=== PATIENT | female | born 1940 | race Caucasian/White ===

== ENCOUNTER 2018-02-12 10:43 | Inpatient (IN) | payer MEDICARE, BC ==
[2018-02-05 11:52] LABS: BASOPHILS # (AUTO) 0.1 X10'3 (0-0.2); BASOPHILS % (AUTO) 1.8 % (0-1); EOSINOPHILS # (AUTO) 0.2 X10'3 (0-0.9); EOSINOPHILS % (AUTO) 3.7 % (0-6); LYMPHOCYTES % (AUTO) 23.3 % (21-51); MEAN CORPUSCULAR HEMOGLOBIN 30.2 PG (27.0-31.0); MEAN CORPUSCULAR VOLUME 88.7 FL (78-98); MONOCYTES # (AUTO) 0.2 X10'3 (0-0.9); NEUTROPHILS # (AUTO) 2.8 X10'3 (1.8-7.7); NEUTROPHILS % (AUTO) 66.2 % (42-75); PRE OP HEMATOCRIT 35.2 % (35.0-45.0); PRE OP PLATELET COUNT 230 X10'3 (140-440); RED BLOOD COUNT 3.97 X10'6 (4.20-5.60); RED CELL DISTRIBUTION WIDTH 13.9 % (11.5-14.5)
[2018-02-05 12:15] LABS: ALBUMIN 3.8 G/DL (3.4-5.0); ALBUMIN/GLOBULIN RATIO 1.2 (1.1-1.5); ALKALINE PHOSPHATASE 78 IU/L (46-116); BLOOD UREA NITROGEN 49 MG/DL (7-18); BUN/CREATININE RATIO 25.8 (6.6-38.0); CALCIUM 9.3 MG/DL (8.5-10.1); CHLORIDE 103 MMOL/L (99-107); PRE OP ANION GAP 11 (8-16); PRE OP AST 23 U/L (10-37); PRE OP BILIRUB, TOTAL 0.4 MG/DL (0.0-1.0); PRE OP GLUCOSE 105 MG/DL (70-104); PRE OP POTASSIUM 4.2 MMOL/L (3.4-5.1); PRE OP SODIUM 138 MMOL/L (135-145); TOTAL CARBON DIOXIDE 24.1 MMOL/L (24-32); TOTAL PROTEIN 7.1 G/DL (6.4-8.2); eGFR 26 ML/MIN
[2018-02-05 12:23] LABS: PRE OP ALT < 10 U/L (30-65)
[~2018-02-12] VITALS: Ht 167.6 cm; Wt 83.9 kg
[2018-02-12] VITALS (13 sets, daily range): BP systolic 118–189; BP diastolic 53–76
[~2018-02-12 10:43] MED LIST: FEBU40TA PO; HYDR25TA4 PO; LEVO50TA PO; LOSA50TA3 PO; MULT-1141 PO; ceFAZolin inj. 2,000 MG in dextrose 5%-water 100 ML IV ONE; famotidine 20mg tablet PO ONE; ringers solution, lacted 1,000 ML IV SCH; vancomycin inj 1,500 MG in normal saline 300ml IV soln IV ONE
[2018-02-12] MEDS ORDERED: vancomycin 1,000mg inj ONE (13:58)
[2018-02-12] MEDS ORDERED: ROPIVAcaine 0.5% (5mg/ml) 30ml vial ONE ×2 (13:58→15:11)
[2018-02-12] MEDS ORDERED: ketorolac trometh. 30mg/ml inj. ONE (13:58)
[2018-02-12] MEDS ORDERED: acetaminophen 1,000mg/100ml IV 100 ML IV ONE (15:12)
[2018-02-12] MEDS ORDERED: ringers solution, lacted 1,000 ML IV SCH (15:48)
[2018-02-12] MEDS ORDERED: ondansetron/PF 4mg/2ml inj IV PRN (15:50)
[2018-02-12] MEDS ORDERED: proMETHazine 25mg rectal suppository RC PRN (15:50)
[2018-02-12] MEDS ORDERED: hydrALAZINE 20mg/ml inj. IV PRN (15:50)
[2018-02-12] MEDS ORDERED: proCHLORperazine 10 MG/2 ml inj IV PRN (15:50)
[2018-02-12] MEDS ORDERED: fentaNYL/PF 50MCG/1 ML 2ML syringe IV PRN ×2 (15:50)
[2018-02-12] MEDS ORDERED: morphine 4 MG/ML inj SYRINge IV PRN ×2 (15:50)
[2018-02-12] MEDS ORDERED: enalaprilat dihydrate 2.5mg/2ml vial IV PRN (15:50)
[2018-02-12] MEDS ORDERED: sevoflurane 250ml liquid IH ONE (16:50)
[2018-02-12] MEDS ORDERED: ondansetron/PF 4mg/2ml inj ONE (16:55)
[2018-02-12] MEDS ORDERED: propofol inj 20 ML IV ONE (16:55)
[2018-02-12] MEDS ORDERED: LIDOcaine 2% (20mg/ml) 5ml vial ONE (16:55)
[2018-02-12] MEDS ORDERED: dexamethasone sod phosphate 4mg/ml inj. ONE (16:56)
[2018-02-12] MEDS ORDERED: tranexamic acid inj. 1,000 MG in normal saline 100ml IV soln 90 ML IV ONE ×4 (17:00)
[2018-02-12] MEDS ORDERED: ePHEDrine 50MG/ML INJ. ONE (17:34)
[2018-02-12] MEDS ORDERED: midazolam 2 mg/2 ml injection ONE (17:43)
[2018-02-12] MEDS: potassium cl 20mEq in 1/2 NS 1,000 ML IV SCH (18:46)
[2018-02-12] MEDS ORDERED: oxyCODONE IR 5mg (immed. release) tablet PO PRN ×2 (18:50)
[2018-02-12] MEDS ORDERED: bisacodyl 10mg suppository rectal RC PRN (18:50)
[2018-02-12] MEDS ORDERED: diphenhydrAMINE 25mg capsule PO PRN ×2 (18:50)
[2018-02-12] MEDS ORDERED: magnesium hydroxide 30ml (MOM) UD suspension PO PRN (18:50)
[2018-02-12] MEDS ORDERED: acetaminophen 325mg tablet PO PRN (18:50)
[2018-02-12] MEDS ORDERED: HYDROmorphone inj. 0.5 MG/0.5 ML DISP.SYRIN IV PRN ×2 (18:50)
[2018-02-12] MEDS: ondansetron/PF 4mg/2ml inj IV PRN (19:47)
[2018-02-12] MEDS: ketorolac tromethamine 15mg/ml inj. IV SCH (21:25)
[2018-02-12] MEDS: acetaminophen 325mg tablet PO SCH (21:28)
[2018-02-12] MEDS: sennosides 8.6mg tablet PO SCH (21:29)
[2018-02-12] MEDS: gabapentin 300mg capsule PO SCH (21:29)
[2018-02-12] MEDS ORDERED: NORMAL SALINE IV ONE (22:50)
[2018-02-12] MEDS ORDERED: TRANEXAMIC ACID IV ONE (22:50)
[2018-02-13] MEDS: ceFAZolin 1GM/D5W- ADD-VANTAGE 50 ML IV SCH ×2 (00:27→08:48)
[2018-02-13] MEDS: ketorolac tromethamine 15mg/ml inj. IV SCH ×3 (02:13→13:39)
[2018-02-13] MEDS: acetaminophen 325mg tablet PO SCH ×4 (02:15→20:31)
[2018-02-13] MEDS: potassium cl 20mEq in 1/2 NS 1,000 ML IV SCH ×3 (02:15→18:46)
[2018-02-13 03:00] VITALS: BP 107/65
[2018-02-13] MEDS ORDERED: vancomycin/NS 1 GM ADD-VANTAGE 250 ML IV SCH (03:00)
[2018-02-13] MEDS: ondansetron/PF 4mg/2ml inj IV PRN (05:16)
[2018-02-13 06:00] VITALS: BP 131/58
[2018-02-13 06:29] LABS: ANION GAP 11 (8-16); CHLORIDE 103 MMOL/L (99-107); SODIUM 134 MMOL/L (135-145); TOTAL CARBON DIOXIDE 19.7 MMOL/L (24-32)
[2018-02-13] MEDS ORDERED: ASPI-1 PO (06:46)
[2018-02-13 06:53] LABS: BASOPHILS % (AUTO) 0.4 % (0-1); EOSINOPHILS # (AUTO) 0.1 X10'3 (0-0.9); EOSINOPHILS % (AUTO) 1.4 % (0-6); HEMATOCRIT 31.7 % (35.0-45.0); HEMOGLOBIN 10.6 g/dl (12.0-16.0); LYMPHOCYTES # (AUTO) 0.5 X10'3 (1.1-4.8); LYMPHOCYTES % (AUTO) 6.5 % (21-51); MEAN CORPUSCULAR HEMOGLOBIN 29.8 PG (27.0-31.0); MEAN CORPUSCULAR HGB CONC 33.5 % (33.0-36.5); MEAN PLATELET VOLUME 8.4 FL (7.4-10.4); MONOCYTES # (AUTO) 0.1 X10'3 (0-0.9); MONOCYTES % (AUTO) 1.4 % (2-12); NEUTROPHILS # (AUTO) 6.6 X10'3 (1.8-7.7); NEUTROPHILS % (AUTO) 90.3 % (42-75); PLATELET COUNT 192 X10'3 (140-440); RED BLOOD COUNT 3.56 X10'6 (4.20-5.60); RED CELL DISTRIBUTION WIDTH 14.6 % (11.5-14.5); WHITE BLOOD COUNT 7.3 X10'3 (4.5-11.0)
[2018-02-13] MEDS: multivitamins, therapeutics tablet PO SCH (08:00)
[2018-02-13] MEDS: febuxostat 40mg tablet PO SCH (08:00)
[2018-02-13] MEDS: gabapentin 300mg capsule PO SCH ×3 (08:00→20:31)
[2018-02-13 08:36] LABS: ALANINE AMINOTRANSFERASE 19 U/L (12-78); ALBUMIN 3.2 G/DL (3.4-5.0); ALKALINE PHOSPHATASE 60 IU/L (46-116); ASPARTATE AMINO TRANSFERASE 25 U/L (10-37); BILIRUBIN,TOTAL 0.3 MG/DL (0.1-1.0); BLOOD UREA NITROGEN 58 MG/DL (7-18); BUN/CREATININE RATIO 25.7 (6.6-38.0); CALCIUM 8.5 MG/DL (8.5-10.1); CREATININE 2.26 MG/DL (0.40-0.90); GLUCOSE 176 MG/DL (70-104); TOTAL PROTEIN 6.3 G/DL (6.4-8.2); eGFR 21 ML/MIN
[2018-02-13] MEDS ORDERED: scopolamine 1.5mg patch.TD72 TD ONE (09:35)
[2018-02-13 10:33] VITALS: BP 154/56
[2018-02-13] MEDS: HYDROchlorothiazide 25mg tablet PO SCH (10:36)
[2018-02-13] MEDS: levoTHYROXINE 25mcg tablet PO SCH (10:36)
[2018-02-13] MEDS: aspirin 325mg tablet PO SCH (10:36)
[2018-02-13] MEDS: losartan 50mg tablet PO SCH (10:37)
[2018-02-13] MEDS ORDERED: LACTOSE-FREE FOOD 237ML (BOOST) PO SCH (13:00)
[2018-02-13 14:00] VITALS: BP 146/55
[2018-02-13] MEDS ORDERED: HYDROcodone/acetaminophen 10/325mg tab PO PRN (15:05)
[2018-02-13] MEDS ORDERED: HYDROcodone/acetaminophen 5mg/325mg tablet PO PRN (15:05)
[2018-02-13 18:00] VITALS: BP 146/47
[2018-02-13] MEDS: sennosides 8.6mg tablet PO SCH (20:32)
[2018-02-13 22:00] VITALS: BP 146/45
[2018-02-13] MEDS: celeCOXIB 100mg capsule PO SCH (22:41)
[2018-02-14] MEDS: acetaminophen 325mg tablet PO SCH ×2 (02:15→08:28)
[2018-02-14 05:00] VITALS: BP 147/45
[2018-02-14 06:29] LABS: BASOPHILS # (AUTO) 0.1 X10'3 (0-0.2); BASOPHILS % (AUTO) 1.4 % (0-1); EOSINOPHILS # (AUTO) 0.2 X10'3 (0-0.9); EOSINOPHILS % (AUTO) 4.3 % (0-6); HEMATOCRIT 27.3 % (35.0-45.0); HEMOGLOBIN 9.3 g/dl (12.0-16.0); LYMPHOCYTES # (AUTO) 1.1 X10'3 (1.1-4.8); LYMPHOCYTES % (AUTO) 26.2 % (21-51); MEAN CORPUSCULAR HEMOGLOBIN 29.9 PG (27.0-31.0); MEAN CORPUSCULAR VOLUME 87.9 FL (78-98); MEAN PLATELET VOLUME 8.2 FL (7.4-10.4); MONOCYTES # (AUTO) 0.2 X10'3 (0-0.9); MONOCYTES % (AUTO) 4.5 % (2-12); NEUTROPHILS # (AUTO) 2.7 X10'3 (1.8-7.7); NEUTROPHILS % (AUTO) 63.6 % (42-75); PLATELET COUNT 183 X10'3 (140-440); RED CELL DISTRIBUTION WIDTH 14.6 % (11.5-14.5); WHITE BLOOD COUNT 4.3 X10'3 (4.5-11.0)
[2018-02-14] MEDS: celeCOXIB 100mg capsule PO SCH (08:19)
[2018-02-14] MEDS: losartan 50mg tablet PO SCH (08:25)
[2018-02-14] MEDS: gabapentin 300mg capsule PO SCH (08:26)
[2018-02-14] MEDS: HYDROchlorothiazide 25mg tablet PO SCH (08:26)
[2018-02-14] MEDS: febuxostat 40mg tablet PO SCH (08:26)
[2018-02-14] MEDS: levoTHYROXINE 25mcg tablet PO SCH (08:27)
[2018-02-14] MEDS: multivitamins, therapeutics tablet PO SCH (08:27)
[2018-02-14] MEDS: aspirin 325mg tablet PO SCH (08:28)
[2018-02-14] MEDS ORDERED: acetaminophen 325mg tablet PO PRN (18:50)
== END 2018-02-14 10:38 | disposition home or self-care (01) | DRG 483 ==
LOC: PAS IN 11:10 → EDSTATUS 13:30 → ORTHO 4S 19:51
PROVIDERS: ADMIT Orthopaedic Surgery; ATTEND Orthopaedic Surgery
PROC: 0LS30ZZ Reposition Right Upper Arm Tendon, Open Approach (ICD-10-PCS; 2018-02-12)
PROC: 3E0T3BZ Introduction of Anesthetic Agent into Peripheral Nerves and Plexi, Percutaneous Approach (ICD-10-PCS; 2018-02-12)
PROC: 0RRJ00Z Replacement of Right Shoulder Joint with Reverse Ball and Socket Synthetic Substitute, Open Approach (ICD-10-PCS; principal; 2018-02-12 16:50)
DX: M19.011 Primary osteoarthritis, right shoulder (principal); D62 Acute posthemorrhagic anemia; M75.121 Complete rotator cuff tear or rupture of right shoulder, not specified as traumatic; E03.9 Hypothyroidism, unspecified; I12.9 Hypertensive chronic kidney disease with stage 1 through stage 4 chronic kidney disease, or unspecified chronic kidney disease; N18.9 Chronic kidney disease, unspecified; M65.811 Other synovitis and tenosynovitis, right shoulder; R11.2 Nausea with vomiting, unspecified; Z96.652 Presence of left artificial knee joint; Z96.651 Presence of right artificial knee joint; Z98.1 Arthrodesis status; Z88.0 Allergy status to penicillin; Z79.899 Other long term (current) drug therapy; Z79.82 Long term (current) use of aspirin
CPT/HCPCS: 36415; 71046; 80053; 84443; 85025; 87070; 97110; 97116; 97161; 97535; A4565; A7000; J0131; J0690; J1100; J1885; J2001; J2250; J2405; J2704; J2795; J3370; J7030; J7040; J7060; J7120; Q0163

== ENCOUNTER 2020-12-19 12:32 | Inpatient (IN) | payer MEDICARE, BC ==
[2020-12-19] VITALS (7 sets, daily range): BP systolic 122–183; BP diastolic 79–134
[~2020-12-19] VITALS: Ht 167.6 cm; Wt 86.4 kg
[~2020-12-19 12:32] MED LIST changes: +ASPI-1 PO; -ceFAZolin inj. 2,000 MG in dextrose 5%-water 100 ML IV ONE; -famotidine 20mg tablet PO ONE; -ringers solution, lacted 1,000 ML IV SCH; -vancomycin inj 1,500 MG in normal saline 300ml IV soln IV ONE
[2020-12-19 13:17] LABS: ALANINE AMINOTRANSFERASE 21 U/L (12-78); ALBUMIN 3.7 G/DL (3.4-5.0); ALBUMIN/GLOBULIN RATIO 1.2 (1.1-1.5); ALKALINE PHOSPHATASE 47 IU/L (46-116); ANION GAP 9 (8-16); ASPARTATE AMINO TRANSFERASE 50 U/L (10-37); BILIRUBIN,TOTAL 0.3 MG/DL (0.1-1.0); BLOOD UREA NITROGEN 46 MG/DL (7-18); BUN/CREATININE RATIO 27.4 (6.6-38.0); CALCIUM 8.7 MG/DL (8.5-10.1); CHLORIDE 107 MMOL/L (99-107); CREATININE 1.68 MG/DL (0.40-0.90); GLUCOSE 101 MG/DL (70-104); POTASSIUM 5.2 MMOL/L (3.5-5.1); SODIUM 141 MMOL/L (135-145); TOTAL CARBON DIOXIDE 24.9 MMOL/L (24-32); TOTAL PROTEIN 6.8 G/DL (6.4-8.2); eGFR 29 ML/MIN
[2020-12-19 13:21] LABS: BASOPHILS # (AUTO) 0.1 X10'3 (0-0.2); EOSINOPHILS # (AUTO) 0.4 X10'3 (0-0.9); EOSINOPHILS % (AUTO) 5.5 % (0-6); HEMOGLOBIN 11.2 g/dl (12.0-16.0); LYMPHOCYTES # (AUTO) 1.2 X10'3 (1.1-4.8); LYMPHOCYTES % (AUTO) 16.5 % (21-51); MEAN CORPUSCULAR HEMOGLOBIN 31.3 PG (27.0-31.0); MEAN CORPUSCULAR VOLUME 94.7 FL (78-98); MEAN PLATELET VOLUME 8.6 FL (7.4-10.4); MONOCYTES # (AUTO) 0.5 X10'3 (0-0.9); MONOCYTES % (AUTO) 6.4 % (2-12); NEUTROPHILS % (AUTO) 69.6 % (42-75); PLATELET COUNT 260 X10'3 (140-440); RED BLOOD COUNT 3.59 X10'6 (4.20-5.60); WHITE BLOOD COUNT 7.1 X10'3 (4.5-11.0)
[2020-12-19] MEDS ORDERED: aspirin 81mg tab.chew PO ONE (13:25)
[2020-12-19] MEDS ORDERED: heparin 10,000 units/1 ML INJ IV ONE ×2 (13:30)
[2020-12-19] MEDS ORDERED: heparin 10,000 units/1 ML INJ IV PRN (13:30)
[2020-12-19] MEDS ORDERED: nitroGLYCERIN 0.4mg SUBLingual tab SL PRN (13:35)
[2020-12-19 13:42] LABS: PARTIAL THROMBOPLASTIN TIME 30 SECONDS (22-32)
[2020-12-19] MEDS: heparin 25,000 UNIT/250ml bag 250 ML IV SCH ×2 (14:22→22:45)
[2020-12-19] MEDS: nitroGLYCERIN-Tridil 50MG/D5W 250 ML IV PRN ×2 (14:39→14:57)
[2020-12-19] MEDS ORDERED: acetaminophen 325mg tablet PO ONE (15:45)
[2020-12-19] MEDS ORDERED: acetaminophen 325mg tablet PO PRN (16:35)
[2020-12-19] MEDS ORDERED: magnesium hydroxide 30ml (MOM) UD suspension PO PRN (16:35)
[2020-12-19] MEDS ORDERED: mag hydrox/Alum hydrox/simeth 30ml oral suspension PO PRN (16:35)
[2020-12-19] MEDS ORDERED: morphine 2 MG/ML inj. syringe IV PRN ×2 (16:35)
[2020-12-19] MEDS ORDERED: ondansetron/PF 4mg/2ml inj IV PRN (16:35)
[2020-12-19] MEDS: normal saline 1000ml 1,000 ML IV SCH (18:54)
[2020-12-19] MEDS ORDERED: GABA-530 PO ×2 (20:27)
--- NOTE | 2020-12-19 21:46 | NUR ---
hep ptt 86, drip on hold for 60 minutes per protocol
[2020-12-20] VITALS (9 sets, daily range): BP systolic 164–214; BP diastolic 47–147
[2020-12-20 01:38] LABS: EOSINOPHILS # (AUTO) 0.5 X10'3 (0-0.9); HEMOGLOBIN 11.3 g/dl (12.0-16.0); LYMPHOCYTES # (AUTO) 1.8 X10'3 (1.1-4.8); MEAN CORPUSCULAR VOLUME 94.2 FL (78-98); MEAN PLATELET VOLUME 9.4 FL (7.4-10.4); MONOCYTES # (AUTO) 0.5 X10'3 (0-0.9)
[2020-12-20 01:39] LABS: BASOPHILS % (AUTO) 0.7 % (0-1); EOSINOPHILS % (AUTO) 7.5 % (0-6); HEMATOCRIT 34.4 % (35.0-45.0); LYMPHOCYTES % (AUTO) 27.5 % (21-51); MEAN CORPUSCULAR HEMOGLOBIN 31.1 PG (27.0-31.0); MONOCYTES % (AUTO) 7.6 % (2-12); NEUTROPHILS # (AUTO) 3.8 X10'3 (1.8-7.7); NEUTROPHILS % (AUTO) 56.7 % (42-75); PLATELET COUNT 250 X10'3 (140-440); RED BLOOD COUNT 3.65 X10'6 (4.20-5.60); RED CELL DISTRIBUTION WIDTH 14.4 % (11.5-14.5); WHITE BLOOD COUNT 6.7 X10'3 (4.5-11.0)
[2020-12-20 01:44] LABS: ALBUMIN 3.6 G/DL (3.4-5.0); ANION GAP 12 (8-16); BLOOD UREA NITROGEN 39 MG/DL (7-18); BUN/CREATININE RATIO 22.3 (6.6-38.0); CALCIUM 8.8 MG/DL (8.5-10.1); CHLORIDE 108 MMOL/L (99-107); CREATININE 1.75 MG/DL (0.40-0.90); GLUCOSE 102 MG/DL (70-104); POTASSIUM 4.5 MMOL/L (3.5-5.1); SODIUM 143 MMOL/L (135-145); TOTAL CARBON DIOXIDE 22.8 MMOL/L (24-32); eGFR 28 ML/MIN
--- NOTE | 2020-12-20 01:57 | NUR ---
12 hour troponin 10.68, Notified Dr. 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 call into Dr. Nguyen, awaiting return call.
[2020-12-20] MEDS: normal saline 1000ml 1,000 ML IV SCH ×2 (05:00→12:40)
[2020-12-20] MEDS: hydrALAZINE 20mg/ml inj. IV PRN ×2 (05:34→23:19)
--- NOTE | 2020-12-20 06:15 | NUR ---
heparin gtt running at 800, documentation appears to say it it is at 1000, but it is running at 800 from last adjustment.
--- NOTE | 2020-12-20 06:30 | NUR ---
Problems reprioritized. Patient report given, questions answered & plan of care reviewed with Meliza HACKETT.
--- NOTE | 2020-12-20 06:40 | NUR ---
Patient in room PCU 3027. I have received report from Yajaira HACKETT and had the opportunity to ask questions and assume patient care.
[2020-12-20] MEDS: heparin 25,000 UNIT/250ml bag 250 ML IV SCH (07:32)
--- NOTE | 2020-12-20 09:12 | NUR ---
PAGER ID: [phone] MESSAGE: When you have a chance can you resume home meds for patient Halie La room 8898E? Thanks Meliza HACKETT ext [phone]
[2020-12-20] MEDS ORDERED: GABA300C PO (09:34)
[2020-12-20] MEDS ORDERED: OXYB-58 PO (09:34)
[2020-12-20] MEDS ORDERED: APIX2.5T PO (09:34)
--- NOTE | 2020-12-20 10:50 | NUR ---
PAGER ID: [phone] MESSAGE: CAN I HAVE AN ORDER FOR TYLENOL FOR HEADACHE FOR PATIENT KARLY MARIE ROOM 3025C. THANKS ALCIDES EXT [phone]
[2020-12-20 13:58] LABS: CHOL/HDL RATIO 3.3 (0.00-4.99); CHOLESTEROL 200 MG/DL (0-200); HDL CHOLESTEROL 61 MG/DL (35-60); LDL CHOLESTEROL 115 MG/DL (50-100); TRIGLYCERIDES 110 MG/DL (20-135)
--- NOTE | 2020-12-20 14:14 | NUR ---
PAGER ID: [phone] MESSAGE: may I have an order for tylenol for pain for Halie La Room 327B? Thanks Meliza ext [phone]
--- NOTE | 2020-12-20 14:18 | NUR ---
CRITICAL LAB VALUE TAKEN FROM LAB, REPORTED TO PRIMARY RN.
--- NOTE | 2020-12-20 14:20 | NUR ---
cardiac ptt 91, drip on hold for 120 minutes per protocol
--- NOTE | 2020-12-20 14:20 | NUR ---
PAGER ID: [phone] MESSAGE: Patient Halie La Room 3027A cardiac PTT is 91, stopped heparin drip per protocol. Meliza HACKETT ext [phone]
[2020-12-20] MEDS ORDERED: verapamil 2.5 mg/ml inj IV ONE (15:53)
[2020-12-20] MEDS ORDERED: nitroGLYCERIN-Tridil 50MG/D5W 250 ML IV ONE (15:53)
[2020-12-20] MEDS ORDERED: midazolam 1 mg/ML 2ml injection ONE ×2 (15:53→16:46)
[2020-12-20] MEDS ORDERED: fentaNYL/PF 50MCG/1 ML 2ML syringe ONE (15:54)
[2020-12-20] MEDS ORDERED: LIDOcaine 1% (10mg/ml)w/preservative injection 20ml MDV ONE (15:54)
[2020-12-20] MEDS ORDERED: iohexol 350MG/ML 100ml bottle IV ONE ×2 (15:54→17:02)
[2020-12-20] MEDS ORDERED: heparin 1,000unit/ml 10ml vial 10 ML ONE (15:54)
[2020-12-20] MEDS ORDERED: ondansetron/PF 4mg/2ml inj ONE (16:36)
[2020-12-20] MEDS ORDERED: metoprolol tartrate 1mg/ml inj IV ONE (16:59)
[2020-12-20] MEDS ORDERED: atropine 0.1mg/ml 10ml syringe ONE (17:08)
[2020-12-20] MEDS ORDERED: phenylephrine 10mg/ml inj. ONE (17:09)
[2020-12-20] MEDS ORDERED: proCHLORperazine 10 MG/2 ml inj ONE (17:24)
[2020-12-20] MEDS ORDERED: ticagrelor 90mg tablet ONE ×2 (17:30→17:36)
[2020-12-20] MEDS ORDERED: proCHLORperazine 10 MG/2 ml inj IV PRN (18:05)
[2020-12-20] MEDS ORDERED: ondansetron/PF 4mg/2ml inj IV PRN (18:05)
[2020-12-20] MEDS ORDERED: OXAZEpam 15mg capsule PO PRN (18:05)
--- NOTE | 2020-12-20 18:20 | NUR ---
Patient in room PCU 3027. I have received report from Meliza HACKETT and had the opportunity to ask questions and assume patient care.
--- NOTE | 2020-12-20 18:22 | NUR ---
Problems reprioritized. Patient report given, questions answered & plan of care reviewed with Kika HACKETT.
--- NOTE | 2020-12-20 19:33 | NUR ---
Called pharmacy to ask about aspirin 81 mg po that is not on EMAR but was ordered post cath.
[2020-12-20] MEDS: aspirin 81mg tablet.DR PO SCH (19:34)
[2020-12-20] MEDS: ticagrelor 90mg tablet PO SCH (20:21)
[2020-12-20] MEDS: gabapentin 300mg capsule PO SCH (20:23)
[2020-12-21] VITALS: BP 167/55
[2020-12-21 02:00] VITALS: BP 149/49
[2020-12-21] MEDS: normal saline 1000ml 1,000 ML IV SCH ×2 (02:21→08:35)
--- NOTE | 2020-12-21 04:00 | NUR ---
Removed radistop from right wrist, covered with gauze and tegaderm. No bleeding noted. Mild bruising surrounding site.
--- NOTE | 2020-12-21 06:02 | NUR ---
Patient slept for about 3 hours, up to restroom 3 times. Nausea resolved.
[2020-12-21 06:20] LABS: BASOPHILS # (AUTO) 0.1 X10'3 (0-0.2); EOSINOPHILS # (AUTO) 0.2 X10'3 (0-0.9); EOSINOPHILS % (AUTO) 2.9 % (0-6); HEMATOCRIT 33.1 % (35.0-45.0); LYMPHOCYTES # (AUTO) 1.2 X10'3 (1.1-4.8); LYMPHOCYTES % (AUTO) 18.1 % (21-51); MEAN CORPUSCULAR HEMOGLOBIN 31.6 PG (27.0-31.0); MEAN CORPUSCULAR HGB CONC 33.3 g/dL (33.0-36.5); MEAN CORPUSCULAR VOLUME 94.9 FL (78-98); MEAN PLATELET VOLUME 8.6 FL (7.4-10.4); MONOCYTES # (AUTO) 0.6 X10'3 (0-0.9); MONOCYTES % (AUTO) 8.8 % (2-12); NEUTROPHILS # (AUTO) 4.6 X10'3 (1.8-7.7); NEUTROPHILS % (AUTO) 68.2 % (42-75); PLATELET COUNT 252 X10'3 (140-440); RED BLOOD COUNT 3.49 X10'6 (4.20-5.60); RED CELL DISTRIBUTION WIDTH 14.4 % (11.5-14.5); WHITE BLOOD COUNT 6.7 X10'3 (4.5-11.0)
[2020-12-21 06:33] LABS: ALBUMIN 3.4 G/DL (3.4-5.0); ANION GAP 10 (8-16); BLOOD UREA NITROGEN 28 MG/DL (7-18); BUN/CREATININE RATIO 19.2 (6.6-38.0); CALCIUM 8.5 MG/DL (8.5-10.1); CHLORIDE 110 MMOL/L (99-107); CREATININE 1.46 MG/DL (0.40-0.90); GLUCOSE 96 MG/DL (70-104); POTASSIUM 4.4 MMOL/L (3.5-5.1); SODIUM 141 MMOL/L (135-145); TOTAL CARBON DIOXIDE 21.1 MMOL/L (24-32); eGFR 34 ML/MIN
--- NOTE | 2020-12-21 06:35 | NUR ---
Problems reprioritized. Patient report given, questions answered & plan of care reviewed with Bev HACKETT.
[2020-12-21 07:00] VITALS: BP 163/58
[2020-12-21] MEDS ORDERED: levoTHYROXINE 25mcg tablet PO SCH (07:30)
[2020-12-21 07:32] VITALS: BP_SYST 163
[2020-12-21] MEDS: ticagrelor 90mg tablet PO SCH (07:32)
[2020-12-21] MEDS: gabapentin 300mg capsule PO SCH (07:33)
[2020-12-21] MEDS: aspirin 81mg tablet.DR PO SCH (07:33)
[2020-12-21] MEDS ORDERED: multivitamins, therapeutics tablet PO SCH (08:00)
[2020-12-21] MEDS ORDERED: losartan 50mg tablet PO SCH (08:00)
[2020-12-21] MEDS ORDERED: oxybutynin 5mg tablet PO SCH (08:00)
[2020-12-21] MEDS ORDERED: febuxostat 40mg tablet PO SCH (08:00)
[2020-12-21] MEDS ORDERED: atorvastatin 20mg tablet PO SCH (08:45)
[2020-12-21] MEDS ORDERED: amLODIPine 5mg tablet PO ONE (09:40)
[2020-12-21] MEDS ORDERED: carVEDilol 3.125mg tablet PO SCH (09:55)
[2020-12-21] MEDS ORDERED: ASPI-1071 PO (10:05)
[2020-12-21] MEDS ORDERED: TICA90TA PO (10:05)
[2020-12-21] MEDS ORDERED: COR3.125T PO (10:05)
--- NOTE | 2020-12-21 11:19 | NUR ---
Pt is requesting that she make her own follow up appt. with Dr. Nguyen.
--- NOTE | 2020-12-21 11:54 | NUR ---
Patient was discharged home with daughters. Packet was reviewed and signed, all belongings were sent with patient including stent card, PIV removed with cannula intact, tele monitoring d/c'd, patient will call for her own f/u with Dr. Nguyen, medications faxed to [facility], Patient was wheeled down by staff and left via private vehicle with daughters.
[2020-12-22] MEDS ORDERED: amLODIPine 5mg tablet PO SCH (08:00)
--- NOTE | 2020-12-22 14:54 | NUR ---
CASE MANAGEMENT DISCHARGE FOLLOW UP: Spoke with pt via telephone. Reports that she is "alive and well," reports extensive bruising at radial cath site from palm to forearm, about 6 or 7 inches, states no change from when she was discharged; denies swelling, bleeding, CP, SOB, pain, fever/chills, s/sx infection. Verbalizes understanding of s/sx requiring further evaluation/emergent assistance. Verbalizes understanding of new and current medications. Pt states that after taking one of her medications she has a short period of time in which she can't take a deep breath, states that this happened while she was in the hospital, states it goes away quickly. Advised to let her PMD know and to return to ED if becomes a problem or gets worse/doesn't go away, she verbalizes understanding. Verbalizes compliance with MD discharge instructions. Verbalizes understanding of the importance in making/keeping follow-up appointments, waiting for callback from Dr. Nguyen's office, will call PMD. States that she received card with stent information at time of discharge. States no further questions/concerns at this time.
== END 2020-12-21 11:46 | disposition home or self-care (01) | DRG 246 ==
LOC: ER 12:32 → ED HOLD 16:35 → EDBEDREQ 18:21 → PCU 3S 19:10
PROVIDERS: ADMIT Family Medicine; ATTEND Family Medicine
PROC: 4A023N7 Measurement of Cardiac Sampling and Pressure, Left Heart, Percutaneous Approach (ICD-10-PCS; principal; 2020-12-20)
PROC: 027034Z Dilation of Coronary Artery, One Artery with Drug-eluting Intraluminal Device, Percutaneous Approach (ICD-10-PCS; 2020-12-20)
PROC: B2111ZZ Fluoroscopy of Multiple Coronary Arteries using Low Osmolar Contrast (ICD-10-PCS; 2020-12-20)
PROC: B2151ZZ Fluoroscopy of Left Heart using Low Osmolar Contrast (ICD-10-PCS; 2020-12-20)
DX: I21.4 Non-ST elevation (NSTEMI) myocardial infarction (principal); N17.0 Acute kidney failure with tubular necrosis; I50.31 Acute diastolic (congestive) heart failure; I13.0 Hypertensive heart and chronic kidney disease with heart failure and stage 1 through stage 4 chronic kidney disease, or unspecified chronic kidney disease; Z66 Do not resuscitate; E11.22 Type 2 diabetes mellitus with diabetic chronic kidney disease; E03.9 Hypothyroidism, unspecified; E78.5 Hyperlipidemia, unspecified; I48.0 Paroxysmal atrial fibrillation; N18.30 Chronic kidney disease, stage 3 unspecified; M10.9 Gout, unspecified; Z79.01 Long term (current) use of anticoagulants; Z82.49 Family history of ischemic heart disease and other diseases of the circulatory system; Z85.3 Personal history of malignant neoplasm of breast; Z95.0 Presence of cardiac pacemaker; Z88.0 Allergy status to penicillin; Z88.5 Allergy status to narcotic agent; Z79.899 Other long term (current) drug therapy; Z79.890 Hormone replacement therapy
CPT/HCPCS: 93306; 93458; 99285; C9600; 36415; 71045; 80048; 80053; 80061; 83880; 84484; 85025; 85610; 85730; 87081; 93005; 99152; 99153; A4620; C1725; C1751; C1769; C1874; C1894; G0378; J0360; J0461; J0780; J1644; J2001; J2250; J2370; J2405; J3010; J3490; J7030; Q9967